=== PATIENT | male | born 1965 | race Caucasian/White ===

== ENCOUNTER 2016-11-10 14:12 | Emergency (ER) | payer SELFPAY ==
[2016-11-10 14:22] VITALS: BP 152/94; PULSE 99; TEMP 97.6; BMI 30.7
[2016-11-10] MEDS ORDERED: ERYTHROMYCIN 0.5% OPHTHALMIC OINTMENT 3.5 GM TUBE OD ONE (14:49)
[2016-11-10] MEDS ORDERED: IBUPROFEN 400 MG TABLET (FP) PO ONE ×2 (14:49→14:54)
[2016-11-10] MEDS ORDERED: DIPHTH,PERTUSS(ACELL),TET 0.5 ML DISP.SYRIN IM ONE (14:49)
[2016-11-10] MEDS ORDERED: ERYTHROMYCIN 0.5% OPHTHALMIC OINTMENT 3.5 GM TUBE ONE (14:54)
--- NOTE | 2016-11-10 14:57 | PDOC ---
History of Present Illness - General Chief Complaint: Eye Problem Stated Complaint: EYE INJURY Time Seen by Provider: 11/10/16 14:30 History Source: Patient Exam Limitations: No Limitations - History of Present Illness Initial Comments: 11/10/16 14:55 51 yr male with c/o injury to right eye. Pt states at work was using hammer to break up a piece of cement when a piece flew up and hit him in the right eye. no LOC. Pt states he has pain around the eye with some bleeding from the eyelid. tetanus unknown. Past History - Past Medical History Allergies/Adverse Reactions: Allergies Allergy/AdvReac Type Severity Reaction Status Date / Time No Known Allergies Allergy Verified 11/10/16 14:19 Home Medications: Ambulatory Orders Tobramycin 0.3% Ophth Oint [Tobrex Ophthalmic Ointment -] 1 applic OD TID #2 tube 11/10/16 Hypercholesterolemia: Yes - Psycho/Social/Smoking Cessation Hx Anxiety: No Suicidal Ideation: No Smoking History: Never smoked Information on smoking cessation initiated: No Hx Alcohol Use: No Drug/Substance Use Hx: No Substance Use Type: None *Physical Exam - Vital Signs Last Vital Signs Temp Pulse Resp BP Pulse Ox 97.6 F 99 H 18 152/94 95 11/10/16 14:20 11/10/16 14:20 11/10/16 14:20 11/10/16 14:20 11/10/16 14:20 - Physical Exam General Appearance: Yes: Nourished, Appropriately Dressed HEENT: positive: EOMI, KHUSHBU, TMs Normal, Pharynx Normal, Other (right eye with ENRIQUE no active bleeding, ELIS intact EOMI without pain) Neck: positive: Supple. 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 NML intact, Fully Oriented, Alert, Normal Mood/ Affect, Normal Response, Motor Strength 5/5 Procedures - Eye Procedure Alcaine Drops Administered: Yes (2 drops right eye ) Eye Irrigated w/ Saline(Uriel Lens): No Antibiotic Oinment/Drps Admin: right eye (erythromycin ointment) Progress: 11/10/16 15:06 neg fluroscein uptake, neg fb seen - Additional Procedures Progress: 11/10/16 15:06 20/40 both eyes vision test without corrective lenses ED Treatment Course - RADIOLOGY Radiology Studies Ordered: Category Date Time Status ORBIT CT W/O CONTRAST [CT] Stat CT Scan 11/10/16 14:49 Ordered Medical Decision Making - Medical Decision Making 11/10/16 15:07 cc: right side eye/face injury no loc pt will get orbit CT, boostrix tetanus, erythromcyin 11/10/16 16:02 CT IS NEGATIVE FOR FRACTURE, OLD SEPTUM NASAL FRACTURE NOTED dc inst given in dutch and all dc inst verbally given via dutch translation. pt understands the follow up plan with the eye doctor is very important. *DC/Admit/Observation/Transfer Diagnosis at time of Disposition: Subconjunctival hemorrhage, traumatic Qualifiers: Laterality: right Qualified Code(s): H11.31 - Conjunctival hemorrhage, right eye - Discharge Dispostion Disposition: HOME Condition at time of disposition: Good - Prescriptions Prescriptions: Tobramycin 0.3% Ophth Oint [Tobrex Ophthalmic Ointment -] 1 applic OD TID #2 tube - Referrals Referrals: Jose Echevarria [Staff Physician] - - Patient Instructions Additional Instructions: take motrin as directed for pain use the eye ointment every 6hrs for 7 days follow with the opthomologist call tomorrow to make appointment Ish motrin segn lo indicado para el dolor Use el ungento para los ojos cada 6 horas por 7 gan Siga con el opthomologist llame maana para hacer la braxton Regreso a la roney de emergencias por cualquier empeoramiento de los sntomas SIEMPRE USE GAFAS DE PROTECCIN EN EL TRABAJO
== END 2016-11-10 16:19 | disposition home or self-care (01) ==
LOC: JERFT 14:12 → EDSEX 14:12 → JERFT 16:19
PROC: 4A07X0Z Measurement of Visual Acuity, External Approach (ICD-10-PCS; principal; 2016-11-10)
DX: H11.31 Conjunctival hemorrhage, right eye (principal); W22.8XXA Striking against or struck by other objects, initial encounter; Y93.H3 Activity, building and construction; Y92.69 Other specified industrial and construction area as the place of occurrence of the external cause; Y99.0 Civilian activity done for income or pay
CPT/HCPCS: 70480-TC; 90715; 99281-25